=== PATIENT | female | born 1935 | race Caucasian/White ===

== ENCOUNTER 2016-09-25 07:12 | Emergency (ER) | payer MEDICARE, OTHER ==
[~2016-09-25] VITALS: Ht 147.3 cm; Wt 71.2 kg
[~2016-09-25 07:12] MED LIST: AMLO5TAB4 PO; ASPI-605 PO; BACI1PAC6 TP; COLC0.6T69 PO; DEXL60CA3 PO; FLUT1DIS28 IH; GLIM1TAB3 PO; IPRA4AER IH; LEVO50TA8 PO; LORA-114 PO; METO-302 PO; MONT10TA22 PO; NYST5ORA PO; RANO500T3 PO; RISE35TA13 PO; ROSU10TA PO; SITA100T PO; TELM1TAB6 PO; TELM80TA6 PO; TIOT18CA4 IH; TOLT4CAP PO; [UNRECOGNIZED DRUG - OTHER]
[2016-09-25] MEDS ORDERED: ACETAMINOPHEN ES 500 MG TABLET PO ONE (07:30)
--- NOTE | 2016-09-25 07:39 | NUR ---
lab dcrawing blood, tylenol administered
[2016-09-25] MEDS ORDERED: ACETAMINOPHEN ES 500 MG TABLET ONE (07:47)
[2016-09-25 07:54] LABS: BASOPHILS % (AUTO) 0.5 % (0.0-2.0); EOSINOPHILS # (AUTO) 0.2 K/uL (0.0-0.7); EOSINOPHILS % (AUTO) 3.2 % (0.0-7.0); HEMATOCRIT 38.2 % (31.2-41.9); LYMPHOCYTES # (AUTO) 1.8 K/uL (20.0-40.0); LYMPHOCYTES % (AUTO) 24.3 % (20.5-51.5); MEAN CORPUSCULAR HGB CONC 34 g/dL (32.3-35.6); MEAN CORPUSCULAR VOLUME 93.9 fL (75.5-95.3); MONOCYTES # (AUTO) 0.9 K/uL (2.0-10.0); MONOCYTES % (AUTO) 11.6 % (0.0-11.0); NEUTROPHILS # (AUTO) 4.5 K/uL (1.8-8.9); NEUTROPHILS % (AUTO) 60.4 % (38.5-71.5); PLATELET COUNT (AUTO) 185 K/uL (179-408); RED BLOOD CELL COUNT(AUTO) 4.07 MIL/uL (3.63-4.92); WHITE BLOOD COUNT (AUTO) 7.4 K/uL (3.8-11.8)
[2016-09-25 08:02] LABS: CALCIUM 9.2 mg/dL (8.5-10.1); CREATININE 0.8 mg/dL (0.6-1.3); POTASSIUM 4.5 mmol/L (3.5-5.1)
[2016-09-25 08:07] LABS: ALBUMIN 3.8 g/dL (3.4-5.0); BILIRUBIN,DIRECT 0.2 mg/dL (0.0-0.2); BILIRUBIN,TOTAL 0.5 mg/dL (0.2-1.0); TOTAL PROTEIN, SERUM 7.3 g/dL (6.4-8.2)
[2016-09-25 09:55] LABS: *BILIRUBIN,URIN NEGATIVE (NEGATIVE); *BLOOD, URINE NEGATIVE (NEGATIVE); *CLARITY,URINE CLEAR (CLEAR); *COLOR,URINE YELLOW (YELLOW); *KETONES,URINE NEGATIVE (NEGATIVE); *PROTEIN,URINE NEGATIVE (NEGATIVE); *UROBILINOGEN,URINE 0.2 E.U./dl (NORMAL); LEUKOCYTE ESTERASE ,URINE NEGATIVE (NEGATIVE); NITRITE, URINE NEGATIVE (NEGATIVE); PH,URINE 7.5 (5.0-8.0); UGLUCOSE NEGATIVE (NEGATIVE)
--- NOTE | 2016-09-25 10:05 | NUR ---
mse completed. pt d/c'd home, aci/rx x1 and copy of all tests given. pt ambulated w/o diff/took all belongings.
[2016-09-25 10:06] VITALS: BP 162/70
[2016-09-25 10:21] LABS: BACTERIA,URINE FEW /HPF (NONE SEEN)
[2016-09-25 10:22] LABS: SQUAMOUS EPITHELIAL CELL,UR FEW /HPF (NONE SEEN); URINE AMORPHOUS PHOSPHATES FEW /HPF
== END 2016-09-25 10:07 | disposition home or self-care (01) ==
LOC: ER 07:12
DX: R10.9 Unspecified abdominal pain (principal); I10 Essential (primary) hypertension; E11.9 Type 2 diabetes mellitus without complications; Z88.0 Allergy status to penicillin; Z79.82 Long term (current) use of aspirin; Z88.8 Allergy status to other drugs, medicaments and biological substances
CPT/HCPCS: 36415; 71010; 74176; 76700; 80048; 80076; 81001; 83690; 85025; 99285; A4663

== ENCOUNTER 2016-12-29 11:09 | Emergency (ER) | payer MEDICARE, OTHER ==
[~2016-12-29] VITALS: Ht 152.4 cm; Wt 69.9 kg
[~2016-12-29 11:09] MED LIST changes: +COLC0.6T67 PO; -COLC0.6T69 PO
[2016-12-29] MEDS ORDERED: PREG50CA PO (11:21)
--- NOTE | 2016-12-29 11:29 | NUR ---
Pt c/o lower back pain for 3-4 days, extends down both legs, 6-7/10, sharp in nature. Pt states her feet feel numb but can feel touch. Also c/o ongoing left shoulder pain. Pt denies CP, SOB, no other complaints, no distress noted.
--- NOTE | 2016-12-29 12:04 | NUR ---
Gave pt RX and d/c instructions, verbalized understanding, daughter translated.
== END 2016-12-29 12:08 | disposition home or self-care (01) ==
LOC: ER 11:11
DX: M19.90 Unspecified osteoarthritis, unspecified site (principal); M54.5 Low back pain; Z79.82 Long term (current) use of aspirin; I10 Essential (primary) hypertension; E11.9 Type 2 diabetes mellitus without complications; Z88.0 Allergy status to penicillin
CPT/HCPCS: 72100; A4663

== ENCOUNTER 2020-12-08 21:32 | Emergency (ER) | payer MEDICARE, OTHER ==
[~2020-12-08] VITALS: Ht 152.4 cm; Wt 66.2 kg
[~2020-12-08 21:32] MED LIST changes: +GLIM1TAB18 PO; -GLIM1TAB3 PO; -METO-302 PO; +METO-356 PO; +PREG50CA PO; -ROSU10TA PO; +ROSU10TA2 PO; -TELM80TA6 PO; +TELM80TA9 PO
--- NOTE | 2020-12-08 22:05 | NUR ---
Note mae in ED - 12/08/20 at 2228 by AMILCAR Patient is an 84 year old female, coming from home. C/C: L knee swelling/redness/abrasion, patient and son states that the patient has fallen one week ago in the bathtub resulting in her L knee swelling/redness/abrasion and R elbow abrasion. Patient states that she was seen by her primary care doctor 1 week ago for her fall. She states that she was prescribed cipro. She states what is different today is that the area around her left knee abrasion appears to have redness surrounding the injury site now.
--- NOTE | 2020-12-08 22:05 | NUR ---
Patient is an 84 year old female, coming from home. C/C: L renae swelling/redness/abrasion, patient and son states that the patient has fallen one week ago in the bathtub resulting in her L renae swelling/redness/abrasion and R elbow abrasion. Patient states that she was seen by her primary care doctor 1 week ago for her fall. She states that she was prescribed cipro. She states what is different today is that the area around her left renae abrasion appears to have redness surrounding the injury site now.
--- NOTE | 2020-12-08 23:05 | NUR ---
public health technician Yumiko states blood draw hemolyzed, she is at bedside redrawing labs of the patient.
[2020-12-08 23:11] LABS: HEMATOCRIT 36.8 % (31.2-41.9); MEAN CORPUSCULAR HEMOGLOBIN 32.9 uug (24.7-32.8); MEAN CORPUSCULAR VOLUME 96.7 fL (75.5-95.3); PLATELET COUNT (AUTO) 165 K/uL (179-408)
[2020-12-08 23:16] LABS: CREATININE 1.2 mg/dL (0.6-1.3); POTASSIUM 3.9 mmol/L (3.5-5.1)
[2020-12-08 23:27] LABS: BILIRUBIN,DIRECT 0.1 mg/dL (0.0-0.2); BILIRUBIN,TOTAL 0.2 mg/dL (0.2-1.0); TOTAL PROTEIN, SERUM 6.8 g/dL (6.4-8.2)
[2020-12-08 23:33] LABS: EOSINOPHILS % (MANUAL) 1 % (0-8); LYMPHOCYTES % (MANUAL) 19 % (20-40); MONOCYTES % (MANUAL) 17 % (2-10); NEUTROPHILS % (MANUAL) 63 % (42-75)
--- NOTE | 2020-12-09 00:25 | NUR ---
MD Baer in room to treat patient's L renae wound.
[2020-12-09] MEDS ORDERED: SULF1TAB48 PO (00:55)
[2020-12-09 01:20] VITALS: BP 128/81
== END 2020-12-09 01:20 | disposition home or self-care (01) ==
LOC: ER 21:34
DX: S90.811A Abrasion, right foot, initial encounter (principal); L03.115 Cellulitis of right lower limb; W18.2XXA Fall in (into) shower or empty bathtub, initial encounter; Y92.012 Bathroom of single-family (private) house as the place of occurrence of the external cause; E86.0 Dehydration; E87.1 Hypo-osmolality and hyponatremia; E11.9 Type 2 diabetes mellitus without complications; Z79.84 Long term (current) use of oral hypoglycemic drugs; Z79.899 Other long term (current) drug therapy; Z79.82 Long term (current) use of aspirin; Z88.6 Allergy status to analgesic agent; Z88.0 Allergy status to penicillin; I10 Essential (primary) hypertension
CPT/HCPCS: 36415; 70030-TC; 85025; 85651; A4217; A4663